=== PATIENT | female | born 1975 | race Caucasian/White ===

== ENCOUNTER 2024-06-25 20:26 | Emergency (ER) | payer MEDICAID ==
[2024-06-25] MEDS: predniSONE 20 MG Tab PO ONE (21:45)
== END 2024-06-25 21:51 | disposition home or self-care (01) ==
LOC: JP.ED 20:26
DX: T78.40XA Allergy, unspecified, initial encounter (principal); Z90.710 Acquired absence of both cervix and uterus; Z91.048 Other nonmedicinal substance allergy status
CPT/HCPCS: 99283; J7512